=== PATIENT | female | born 1955 | race African-American/Black ===

== ENCOUNTER 2020-02-20 06:50 | Outpatient (CLI) | payer MEDICARE, OTHER ==
--- NOTE | 2020-02-20 12:41 | RAD ---
RADIOGRAPH CHEST 2 VIEWS: DATE: 02/20/2020 HISTORY: 64-year-old female for preoperative clearance FINDINGS: There is no airspace density, pulmonary edema, pleural effusion, pneumothorax, or cardiomegaly. IMPRESSION: No acute cardiopulmonary findings.
[2020-02-20 14:12] LABS: Hemoglobin 13.8 g/dL (12.0-16.0); Mean Corpuscular HGB CONC 33.1 g/dL (32.0-36.0); Mean Corpuscular Hemoglobin 30.8 pg (27.0-31.0); Mean Platelet Volume 8.2 fL (7.4-10.4); Platelet Count 225 thou/uL (130-400); RBC Distribution Width 12.3 % (11.5-14.5); Red Blood Cell (RBC) Count 4.48 mill/uL (4.20-5.40); White Blood Cell (WBC) Count 4.4 thou/uL (4.8-10.8)
[2020-02-20 14:29] LABS: INR-International Normal Ratio 0.9; PTT 24.8 sec (22.9-36.1); Prothrombin Time 12.4 sec (12.0-14.7)
[2020-02-20 14:44] LABS: Anion Gap 12 mmol/L (10-20); BUN (Urea Nitrogen) 17 mg/dL (9.8-20.1); Calc. Creatinine Clearance 0 mL/min (70-130); Calcium 9.3 mg/dL (7.8-10.44); Carbon Dioxide 27 mmol/L (23-31); Chloride 107 mmol/L (98-107); Estimated GFR-MDRD 72; Glucose 125 mg/dL (80-115); Potassium 3.3 mmol/L (3.5-5.1); Sodium 143 mmol/L (136-145)
[2020-02-20 16:53] LABS: Bacteria/HPF None Seen HPF (None Seen); Bilirubin Negative (Negative); Blood, Urine 2+ (Negative); Calcium Oxalate Crystals 2+ HPF (None Seen); Clarity Clear (Clear); Glucose, Urine (Dipstick) Normal (Negative); Leukocyte 75 Leu/uL (Negative); Mucous/LPF 1+ LPF (<2+); Nitrite Negative (Negative); Protein, Urine (Dipstick) 30 mg/dL (Neg-Trace); Squamous Epithelial 0-3 HPF (0-3); Urobilinogen Normal mg/dL (Less than 2)
[2020-02-21 13:10] LABS: SARS-CoV-2 MS2 Positive; SARS-CoV-2 N Gene Negative; SARS-CoV-2 S Gene Negative; SARS-CoV-2 orf1ab Negative
== END 2020-02-20 06:51 | disposition home or self-care (01) ==
LOC: LABBT 06:50
PROVIDERS: ATTEND Urology
DX: Z01.818 Encounter for other preprocedural examination (principal); Z11.59 Encounter for screening for other viral diseases; N13.2 Hydronephrosis with renal and ureteral calculous obstruction; R91.1 Solitary pulmonary nodule
CPT/HCPCS: 71046; 80048; 81001; 85027; 85610; 85730; 87086; U0003; 87635; 93005; 93010

== ENCOUNTER 2020-02-23 09:53 | Day surgery (SDC) | payer MEDICARE ==
[2020-02-17 13:43] VITALS: BMI 30.6
[2020-02-23] MEDS ORDERED: Levofloxacin 500 mg/D5W 100 ml Premix Bag ONE (13:48)
[2020-02-23] MEDS ORDERED: B & O ONE (14:22)
[2020-02-23] MEDS ORDERED: Fentanyl 100 MCG/2 ML VIAL ONE (14:31)
[2020-02-23] MEDS ORDERED: Oxybutynin 5 MG TAB ONE (15:48)
[2020-02-23] MEDS ORDERED: Phenazopyridine HCl 97.5 MG TABLET ONE (15:48)
[2020-02-23] MEDS ORDERED: Dexamethasone 20 MG/5 ML VIAL ONE (15:57)
[2020-02-23] MEDS ORDERED: EPHEDRINE 25 MG/5 ML SYRINGE ONE (15:57)
[2020-02-23] MEDS ORDERED: Ondansetron PF 4 MG/2 ML Vial ONE (15:57)
[2020-02-23] MEDS ORDERED: Lidocaine 1% PF 5 ML VIAL ONE (15:57)
[2020-02-23] MEDS ORDERED: PROPOFOL 200 MG/20 ML VIAL ONE (15:57)
[2020-02-23] MEDS ORDERED: Labetalol HCl 100 MG/20 ML VIAL SLOW IVP SCH (16:00)
--- NOTE | 2020-02-23 21:41 | OP ---
DATE OF PROCEDURE: 02/23/2020 SERVICE: Urology. PREOPERATIVE DIAGNOSIS: Left ureteral stone. POSTOPERATIVE DIAGNOSIS: Left ureteral stone. PROCEDURE PERFORMED: Left ureteroscopy, laser lithotripsy, basket extraction of stone, and placement of a 6 x 26 double-J stent with no string attached. INDICATIONS FOR PROCEDURE: Ms. Bowers is a 64-year-old black female, who presented to my office with left flank pain. She was found to have approximately 6 mm left distal ureteral stone. She failed to pass this on her own, so we elected to proceed with ureteroscopy. Risks and benefits were discussed and she has agreed to proceed forward. DESCRIPTION OF PROCEDURE: After identification of armband and verification of consent, the patient was brought back to the operating room, where she underwent general anesthesia with an LMA. She was then placed in dorsal lithotomy position and prepped and draped in usual sterile fashion. After appropriate time-out, a lubricated 22-Turkmen rigid cystoscope was introduced per urethra into the bladder. Attention was turned to the left ureteral orifice. Attempts at cannulating the ureteral orifice were unsuccessful with a Sensor wire secondary to the stone being impacted so distal. As such, I elected to go ahead and proceed directly to ureteroscopy to remove the stone. The cystoscope and wire were removed and a semi-rigid ureteroscope was brought in and cannulated into the distal ureter, where the stone was immediately encountered. Using a 365 micron laser fiber, the stone was fragmented into small pieces and due to the distal nature of the stone, the fragments came out on their own without necessity for basketing. All stone fragments blew out of the ureter and under final ureteroscopy up to the mid ureter, there were no additional stone fragments. The ureteroscope was then withdrawn, and removed. The cystoscope was then brought back into the bladder and the Sensor wire was advanced through the left ureteral orifice, which was passed with ease up to the level of renal pelvis. At this point, a 6 x 26 double-J stent with no string was advanced over the Sensor wire up to the level of renal pelvis. The wire was removed leaving a good curl in the kidney and a good curl in the bladder. The bladder was then drained out using the cystoscope to try to remove some of the fragments and sent off for stone analysis and once completely emptied, the cystoscope removed. The stones were sent off for stone analysis. The patient had B and O suppository placed in the rectum. Then taken out of positioning, awakened, taken to PACU for recovery in stable condition. COMPLICATIONS: None. ESTIMATED BLOOD LOSS: Minimal. RETAINED TUBES AND DRAINS: 6 x 26 double-J stent on the left. SPECIMENS: Stone for stone analysis. DISPOSITION: The patient will be discharged home and follow up with me in approximately 1 week for cysto and stent removal. Job ID: [id number]
== END 2020-02-23 17:26 | disposition home or self-care (01) ==
LOC: SDC 09:53
PROVIDERS: ATTEND Urology
PROC: 0TC78ZZ Extirpation of Matter from Left Ureter, Via Natural or Artificial Opening Endoscopic (ICD-10-PCS; principal; 2020-02-23)
PROC: 0T778DZ Dilation of Left Ureter with Intraluminal Device, Via Natural or Artificial Opening Endoscopic (ICD-10-PCS; 2020-02-23)
DX: N13.2 Hydronephrosis with renal and ureteral calculous obstruction (principal); R91.1 Solitary pulmonary nodule; M19.90 Unspecified osteoarthritis, unspecified site; I10 Essential (primary) hypertension; Z86.73 Personal history of transient ischemic attack (TIA), and cerebral infarction without residual deficits; Z87.891 Personal history of nicotine dependence; Z79.82 Long term (current) use of aspirin; Z79.899 Other long term (current) drug therapy
CPT/HCPCS: 74420; 76000; 82365; 88300; J1100; J1956; J2001; J2405; J2704; J3010

== ENCOUNTER 2020-04-10 08:51 | Outpatient (CLI) | payer MEDICARE ==
--- NOTE | 2020-04-10 10:00 | ULT ---
BILATERAL RENAL ULTRASOUND COMPLETE: HISTORY: Ureteral stone with hydro. COMPARISON: Abdomen and pelvic CT scan without IV contrast, 02/11/2020. FINDINGS: An 8.4 x 10.9 cm right renal cyst. This is somewhat distorting the position of the right kidney. No right renal hydronephrosis. The right kidney overall length including the cyst measures 18.4 x 8.4 x 10.1 cm. The left kidney measures 11.2 x 5.5 x 6.1 cm. No evidence for a left-sided renal hydrone phrosis. The previously noted hydronephrosis of the left kidney seen on the prior CT scan has resolv ed. The urinary bladder appears unremarkable. IMPRESSION: Large right renal cyst. No evidence for renal hydronephrosis. POS: OFF
== END 2020-04-10 08:52 | disposition home or self-care (01) ==
LOC: BICULT 08:51
PROVIDERS: ATTEND Urology
DX: N13.2 Hydronephrosis with renal and ureteral calculous obstruction (principal); N28.1 Cyst of kidney, acquired
CPT/HCPCS: 76770